=== PATIENT | male | born 1940 | race Caucasian/White ===

== ENCOUNTER 2018-08-22 11:11 | Inpatient (IN) | payer MEDICARE, BC | END 2018-08-27 14:05 | LOC: ER 11:11 → PCU 3S 08-24 23:42 → ED HOLD 17:08 → PCU 3S 19:29 | DX: I50.21 Acute systolic (congestive) heart failure (principal); J15.9 Unspecified bacterial pneumonia; J90 Pleural effusion, not elsewhere classified; I48.91 Unspecified atrial fibrillation ==